=== PATIENT | male | born 1970 | race Caucasian/White ===

== ENCOUNTER 2024-09-01 14:23 | Inpatient (IN) | payer OTHER ==
[2024-09-01] MEDS ORDERED: BENZOCAINE/MENTHOL (CHLORASEPTIC ) LOZENGE MM PRN (14:54)
[2024-09-01] MEDS ORDERED: NICOTINE POLACRILEX 2 MG GUM BUC PRN (14:54)
[2024-09-01] MEDS ORDERED: POLYETHYLENE GLYCOL (HEALTHYLAX) 3350 17 GM PACKET PO PRN (14:54)
[2024-09-01] MEDS ORDERED: NICOTINE POLACRILEX 2 MG LOZENGE BC PRN (14:54)
[2024-09-01] MEDS ORDERED: MAGNESIUM HYDROX 2400MG/30ML ORAL SUSPENSION 30 ML CUP PO PRN (14:54)
[2024-09-01] MEDS ORDERED: ACETAMINOPHEN 325 MG TABLET (FP) PO PRN (14:54)
[2024-09-01] MEDS ORDERED: IBUPROFEN 600 MG TABLET (FP) PO PRN (14:54)
[2024-09-01] MEDS ORDERED: LOPERAMIDE HCL 2 MG CAPSULE PO PRN (14:54)
[2024-09-01] MEDS ORDERED: NALOXONE (NARCAN) HCL 4 MG/0.1 ML SPRAY NS PRN (14:54)
[2024-09-01] MEDS ORDERED: NALOXONE HCL 0.4 MG/ML VIAL IVPUSH PRN (14:54)
[2024-09-01] MEDS ORDERED: guaiFENesin 600 MG TABLET.ER (FP) PO PRN (14:54)
[2024-09-01] MEDS ORDERED: BENZONATATE 200 MG CAPSULE PO PRN (14:54)
[2024-09-01] MEDS: MELATONIN 5 MG TABLETS PO SCH (21:49)
[2024-09-01] MEDS: METHOCARBAMOL 500 MG TABLET PO PRN (21:49)
[2024-09-01] MEDS: THIAMINE 100 MG TABLET PO SCH (21:49)
[2024-09-02] MEDS: PRENATAL VITAMINS W/ FOLIC ACID TABLET (FP) PO SCH (10:43)
[2024-09-02] MEDS: methaDONE HCL 10 MG TABLET PO SCH (10:46)
[2024-09-03] MEDS ORDERED: methaDONE HCL 10 MG TABLET PO SCH (09:30)
[2024-09-06] MEDS: BACLOFEN 10 MG TABLET (FP) PO SCH (21:08)
[2024-09-09 11:09] LABS: INR 0.99 (0.83-1.09); PROTHROMBIN TIME (PATIENT) 10.9 SEC (9.7-13.0)
[2024-09-09] MEDS: LACTULOSE 20 GM/30 ML UDC (FOR ORAL USE ONLY) PO SCH (21:15)
[2024-09-16] MEDS: LACTULOSE 20 GM/30 ML UDC (FOR ORAL USE ONLY) PO SCH (15:00)
[2024-09-17] MEDS: IBUPROFEN 400 MG TABLET (FP) PO PRN (14:51)
[2024-09-23] MEDS: MAG HYDROX/AL HYDROX/SIMETH 30 ML UNIT-DOSE CUP PO PRN (12:46)
[2024-09-27 06:46] VITALS: BP 111/80; PULSE 65; RESP 16; TEMP 96.9
== END 2024-09-27 10:17 | disposition home or self-care (01) | DRG 895 ==
LOC: YASAS 14:23 → Y3NR 14:25 → Y5N 09-02 12:03
PROVIDERS: ADMIT Neuromusculoskeletal Medicine & OMM; ATTEND Psychiatry & Neurology Pain Medicine
PROC: HZ42ZZZ Group Counseling for Substance Abuse Treatment, Cognitive-Behavioral (ICD-10-PCS; principal; 2024-09-01)
DX: F11.20 Opioid dependence, uncomplicated (principal); F14.20 Cocaine dependence, uncomplicated; F19.282 Other psychoactive substance dependence with psychoactive substance-induced sleep disorder; F19.280 Other psychoactive substance dependence with psychoactive substance-induced anxiety disorder; F17.210 Nicotine dependence, cigarettes, uncomplicated; F19.24 Other psychoactive substance dependence with psychoactive substance-induced mood disorder; R79.89 Other specified abnormal findings of blood chemistry
CPT/HCPCS: 36415; 82140; 82652; 82962; 83735; 85610; 86803; 87522; J0475

== ENCOUNTER 2024-10-24 13:09 | Inpatient (IN) | payer OTHER ==
[2024-10-24] MEDS ORDERED: IBUPROFEN 400 MG TABLET (FP) PO PRN (14:53)
[2024-10-24] MEDS ORDERED: NALOXONE HCL 0.4 MG/ML VIAL IVPUSH PRN (14:53)
[2024-10-24] MEDS ORDERED: MAG HYDROX/AL HYDROX/SIMETH 30 ML UNIT-DOSE CUP PO PRN (14:53)
[2024-10-24] MEDS ORDERED: MAGNESIUM HYDROX 2400MG/30ML ORAL SUSPENSION 30 ML CUP PO PRN (14:53)
[2024-10-24] MEDS ORDERED: NALOXONE (NARCAN) HCL 4 MG/0.1 ML SPRAY NS PRN (14:53)
[2024-10-24] MEDS ORDERED: guaiFENesin 600 MG TABLET.ER (FP) PO PRN (14:53)
[2024-10-24] MEDS ORDERED: BENZONATATE 200 MG CAPSULE PO PRN (14:53)
[2024-10-24] MEDS ORDERED: NICOTINE 7 MG/24 HOURS TOPICAL PATCH TD PRN (14:53)
[2024-10-24] MEDS ORDERED: LOPERAMIDE HCL 2 MG CAPSULE PO PRN (14:53)
[2024-10-24] MEDS ORDERED: NICOTINE POLACRILEX 4 MG LOZENGE BC PRN (14:53)
[2024-10-24] MEDS ORDERED: POLYETHYLENE GLYCOL (HEALTHYLAX) 3350 17 GM PACKET PO PRN (14:53)
[2024-10-24] MEDS ORDERED: ACETAMINOPHEN 325 MG TABLET (FP) PO PRN (14:53)
[2024-10-24] MEDS ORDERED: NICOTINE POLACRILEX 4 MG GUM BUC PRN (14:53)
[2024-10-24] MEDS: MELATONIN 5 MG TABLETS PO SCH (21:37)
[2024-10-24] MEDS: METHOCARBAMOL 500 MG TABLET PO PRN (21:37)
[2024-10-24] MEDS: THIAMINE 100 MG TABLET PO SCH (21:37)
[2024-10-25] MEDS ORDERED: methaDONE HCL 10 MG TABLET PO SCH (09:15)
[2024-10-25] MEDS ORDERED: HYDROCORTISONE 1% TOPICAL CREAM 30 GM TUBE TP PRN (09:24)
[2024-10-25] MEDS: PRENATAL VITAMINS W/ FOLIC ACID TABLET (FP) PO SCH (10:13)
[2024-10-25] MEDS: IBUPROFEN 600 MG TABLET (FP) PO PRN (14:20)
[2024-10-25] MEDS: hydrOXYzine PAMOATE 25 MG CAPSULE (FP) PO PRN (21:32)
[2024-10-25] MEDS: CLINDAMYCIN PHOSPHATE 1% TOPICAL GEL 30 GM TUBE TP PRN (21:33)
[2024-10-27] MEDS: BENZOCAINE/MENTHOL (CHLORASEPTIC ) LOZENGE MM PRN (23:42)
[2024-10-28] MEDS: LACTULOSE 20 GM/30 ML UDC (FOR ORAL USE ONLY) PO SCH (10:05)
[2024-10-28] MEDS: guaiFENesin 200 MG/10 ML 10 ML UNIT-DOSE CUPS PO PRN (21:24)
[2024-10-29] MEDS ORDERED: BENZONATATE 200 MG CAPSULE PO PRN (16:08)
[2024-10-29] MEDS: AZITHROMYCIN 250 MG TABLET PO ONE (17:45)
[2024-10-30] MEDS: AZITHROMYCIN 250 MG TABLET PO SCH (09:57)
[2024-10-30] MEDS: guaiFENesin 600 MG TABLET.ER (FP) PO PRN (21:25)
[2024-11-04] MEDS: LACTULOSE 20 GM/30 ML UDC (FOR ORAL USE ONLY) PO SCH (13:45)
[2024-11-19] MEDS: OXYMETAZOLINE 0.05% NASAL SOLUTION 15 ML BOTTLE NS PRN (23:12)
[2024-11-20 06:41] VITALS: PULSE 73; TEMP 97.1
[2024-11-21 05:41] VITALS: BP 108/71; RESP 16
== END 2024-11-21 10:58 | disposition home or self-care (01) | DRG 895 ==
LOC: YASAS 13:09 → Y5N 13:10
PROVIDERS: ADMIT Psychiatry & Neurology Pain Medicine; ATTEND Psychiatry & Neurology Pain Medicine
PROC: HZ42ZZZ Group Counseling for Substance Abuse Treatment, Cognitive-Behavioral (ICD-10-PCS; principal; 2024-10-24)
DX: F11.20 Opioid dependence, uncomplicated (principal); F14.20 Cocaine dependence, uncomplicated; F19.282 Other psychoactive substance dependence with psychoactive substance-induced sleep disorder; F19.280 Other psychoactive substance dependence with psychoactive substance-induced anxiety disorder; E72.20 Disorder of urea cycle metabolism, unspecified; Z59.01 Sheltered homelessness; F10.20 Alcohol dependence, uncomplicated; F12.20 Cannabis dependence, uncomplicated; F17.210 Nicotine dependence, cigarettes, uncomplicated; F19.24 Other psychoactive substance dependence with psychoactive substance-induced mood disorder; R29.6 Repeated falls; R26.89 Other abnormalities of gait and mobility; Z99.89 Dependence on other enabling machines and devices
CPT/HCPCS: 0241U-QW; 71046-TC-FY; 73560-TC-LT-FY; 82140